=== PATIENT | female | born 1980 | race Caucasian/White ===

== ENCOUNTER → 2020-09-10 | Outpatient (CLI) | payer SELFPAY | END | disposition home or self-care (01) | LOC: LABWHC1 14:11 | PROVIDERS: ATTEND Obstetrics & Gynecology Obstetrics | DX: N92.5 Other specified irregular menstruation (principal) | CPT/HCPCS: 36415; 84144; 84702 ==

== ENCOUNTER → 2020-09-26 | Outpatient (CLI) | payer SELFPAY ==
[2020-09-26 23:25] LABS: HGB 11.6 g/dL (12.0-15.0); MCH 28.9 pg (27.0-32.0); MCHC 33.1 g/dL (32.0-37.0); MCV 87.3 fL (80.0-97.0); Mean Platelet Volume 10.7 fL (9.5-12.2); Platelet Count 271 X 10*3/uL (140-440); RBC 4.01 X 10*6/uL (4.10-5.20); WBC 9.05 X 10*3/uL (4.50-10.00)
[2020-09-27 02:19] LABS: HIV 2 AB Non-Reactive (Non-Reactive); HIV AB P24 Non-Reactive (Non-Reactive); HIV P24 AG Non-Reactive (Non-Reactive)
[2020-09-27 06:35] LABS: Hepatitis B Surface Antigen Non-Reactive (Non-Reactive)
== END | disposition home or self-care (01) ==
LOC: LABWHC1 14:17
PROVIDERS: ATTEND Obstetrics & Gynecology Obstetrics
DX: Z34.82 Encounter for supervision of other normal pregnancy, second trimester (principal); Z3A.00 Weeks of gestation of pregnancy not specified
CPT/HCPCS: 36415; 85027; 86592; 86762; 86850; 86900; 86901; 87086; 87340; 87390

== ENCOUNTER 2021-02-28 14:19 | Outpatient (CLI) | payer OTHER ==
[2021-02-28 15:25] VITALS: BP 122/76; PULSE 100; RESP 16; TEMP 97.8
--- NOTE | 2021-03-15 09:34 | P.MSEPDOC ---
Presenting Problems - Arrival Data Date of Arrival on Unit: 02/28/21 Time of Arrival on Unit: 14:20 Mode of Transport: Ambulatory - Complaint OB-Reason for Admission/Chief Complaint: Decreased Movement Medical History - Information : 3 Para: 1 Term: 1 : 0 Abortions: Spontaneous or Elective: 1 Number of Living Children: 1 - Gestational Age Gestational Age by LINA (wks/days): 38 Weeks and 3 Days Review of Systems - Review of Systems Constitutional: No problems Breast: No problems ENT: No problems Cardiovascular: No problems Respiratory: No problems Gastrointestinal: No problems Genitourinary: No problems Musculoskeletal: No problems Neurological: No problems Skin: No problems Vital Signs - Temperature Temperature: 97.8 F Temperature Source: Oral - Pulse Right Brachial Pulse Rate: 100 Pulse Assessment Method: Auscultation - Respirations Respiratory Rate: 16 Oxygen Delivery Method: Room Air - Blood Pressure Right Arm Blood Pressure: 122/76 Blood Pressure Mean: 91 Blood Pressure Source: Automatic Cuff Medical Screen Scoring - Assessment - Baby A Baseline FHR: 140 Heart Rate - NICHD Category: Category I (Normal) Physician Notification - Physician Notified Physician Notified Date: 02/28/21 Physician Notified Time: 14:51 Physician: Eleanor Del Angel New Order Received: Yes - Notification Comment Comment: reported pt visit with c/o dfm since yesterday, reported fm palpated by rn and now felt by pt. reported reactive nst Maternal Triage Index - Maternal Triage Index Presenting for scheduled procedure w/no complaint: No - Stat/Priority 1 Stat Priority 1: No - Urgent/Priority 2 Urgent Priority 2: Yes Provider Notified: Eleanor Del Angel Provider Notified Time: 14:51 Criteria Met for Priority 2: pt reports decreased fm Disposition - Disposition OB Disposition: Discharge to home Discharge Date: 02/28/21 Discharge Time: 15:09 I agree with the RN Medical Screening Exam: Yes Case reviewed; plan agreed upon as documented in EMR&OBIX.: Yes Diagnosis: FALSE LABOR AT OR AFTER 37 COMPLETED WEEKS OF GESTATION
== END 2021-02-28 15:09 | disposition home or self-care (01) ==
LOC: FBPOP 14:19
PROVIDERS: ATTEND Obstetrics & Gynecology Obstetrics
DX: O47.1 False labor at or after 37 completed weeks of gestation (principal); Z3A.38 38 weeks gestation of pregnancy; Z88.2 Allergy status to sulfonamides
CPT/HCPCS: 59025; G0463; 99213

== ENCOUNTER 2021-03-11 12:36 | Inpatient (IN) | payer OTHER ==
[2021-03-12] MEDS ORDERED: TERBUTALINE 1 MG/ML VIAL SQ PRN (06:25)
[2021-03-12] MEDS ORDERED: OXYTOCIN 10 UNIT/ML 1 ML VIAL IM PRN (06:25)
[2021-03-12] MEDS ORDERED: METHYLERGONOVINE 0.2 MG/ML 1 ML AMP IM PRN (06:25)
[2021-03-12] MEDS ORDERED: LIDOCAINE 0.5% (PF) 5 MG/ML (50 ML SDV) SQ PRN (06:25)
[2021-03-12] MEDS ORDERED: CARBOPROST TROMETHAMINE 250 MCG/ML 1 ML AMP IM PRN (06:25)
[2021-03-12] MEDS ORDERED: LACTATED RINGERS 1,000 ML IV SCH (06:30)
[2021-03-12] MEDS ORDERED: OXYTOCIN 30 UNITS/500 ML NS 30 UNIT in SALINE 1 500ML.BAG IV SCH ×2 (06:30→11:15)
[2021-03-12 07:56] LABS: Basophils % (A) 0 %; Eosinophils # (A) 0.1 k/uL (0-0.7); Eosinophils % (A) 2 %; HCT 37.1 % (34.0-46.0); HGB 12.3 gm/dL (11.4-16.0); Lymphocytes # (A) 1.5 k/uL (1.0-4.8); Lymphocytes % (A) 18 %; MCH 29.1 pg (25.0-35.0); MCHC 33.1 g/dL (31.0-37.0); MCV 87.8 fL (80.0-100.0); Mean Platelet Volume 8.4; Monocytes # (A) 0.5 k/uL (0-1.0); Monocytes % (A) 6 %; Neutrophils # (A) 5.9 k/uL (1.3-7.7); Neutrophils % (A) 72 %; Platelet Count 277 k/uL (150-450); RBC 4.22 m/uL (3.80-5.40); RDW 12.3 % (11.5-15.5); WBC 8.2 k/uL (3.8-10.6)
--- NOTE | 2021-03-12 08:32 | P.HPOB ---
History of Present Illness H&P Date: 03/12/21 Chief Complaint: IUP at 40 and one sevenths weeks, AMA This is a 40-year-old 2 para 1 at 40 1/7 weeks, EDC of 03/11/2021 that presents to labor and delivery for induction of labor secondary to postdates. Patient has had routine care which has been essentially on Occasion. Patient notes good movement, denies vaginal bleeding contractions or loss of fluid. Patient has a normal blood type of A+, rubella status immune, hepatitis B surface antigen negative, HIV negative, group beta strep culture negative. Review of Systems Constitutional: Denies chills, Denies fatigue, Denies fever Ears, nose, mouth and throat: Denies headache Cardiovascular: Denies leg edema Respiratory: Denies dyspnea Gastrointestinal: Denies constipation, Denies diarrhea, Denies nausea, Denies vomiting Genitourinary: Reports Past Medical History Past Medical History: No Reported History History of Any Multi-Drug Resistant Organisms: None Reported Past Surgical History: No Surgical Hx Reported Smoking Status: Never smoker Past Drug Use History: None Reported Medications and Allergies Allergies Allergy/AdvReac Type Severity Reaction Status Date / Time Sulfa (Sulfonamide Allergy Unknown Verified 03/12/21 06:24 Antibiotics) Childhood Exam Osteopathic Statement: *. No significant issues noted on an osteopathic structural exam other than those noted in the History and Physical/Consult. 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 heart tones returned be category 1 and she is rudolph irregularly. Results Result Diagrams: 03/12/21 07:31 Assessment and Plan (1) Post-dates Current Visit: Yes Status: Acute Code(s): O48.0 - POST-TERM SNOMED Code(s): 17839944 (2) AMA (advanced maternal age) multigravida 35+ Current Visit: Yes Status: Acute Code(s): O09.529 - SUPERVISION OF ELDERLY MULTIGRAVIDA, UNSPECIFIED TRIMESTER SNOMED Code(s): 484583393 Plan: 40-year-old at 40 and one sevenths weeks presents for induction of labor. Patient is admitted to labor and delivery and Pitocin induction of labor is begun per hospital protocol. Patient consented amniotomy which was performed and clear fluid was obtained. Patient claims options for analgesia epidural and Stadol are discussed. Anticipate spontaneous vaginal delivery later this morning.
[2021-03-12] MEDS ORDERED: diphenhydrAMINE 25 MG CAP PO PRN (11:10)
[2021-03-12] MEDS ORDERED: ACETAMINOPHEN TAB 325 MG TAB PO PRN (11:10)
[2021-03-12] MEDS ORDERED: diphenhydrAMINE 50 MG CAP PO PRN (11:10)
[2021-03-12] MEDS ORDERED: ZOLPIDEM 5 MG TAB PO PRN (11:10)
[2021-03-12] MEDS ORDERED: BENZOCAINE/MENTHOL SPRAY 1 GM/SPRAY AEROSOL TOPICAL PRN (11:10)
[2021-03-12] MEDS ORDERED: LANOLIN CREAM 5 GM TUBE TOPICAL PRN (11:10)
[2021-03-12] MEDS ORDERED: SIMETHICONE 80 MG CHEWABLE PO PRN (11:10)
[2021-03-12] MEDS ORDERED: HYDROCORTISONE 2.5% RECTAL CREAM 30 GM TUBE RECTAL PRN (11:10)
[2021-03-12] MEDS ORDERED: diphenhydrAMINE 50 MG/ML 1 ML VIAL IVP PRN ×2 (11:10)
[2021-03-12] MEDS: IBUPROFEN 600 MG TAB PO SCH ×2 (11:23→19:41)
[2021-03-12] MEDS: SENNOSIDES-DOCUSATE SODIUM 1 EACH TAB PO SCH (19:40)
--- NOTE | 2021-03-13 05:28 | P.PROBDLV ---
Vaginal Delivery Note - . Vaginal Delivery Note: 40-year-old 2 para 1001 at 40 and one sevenths weeks that presented to labor and delivery for elective induction of labor secondary to postdates. Patient was admitted to labor and delivery and Pitocin induction of labor was begun. Patient did consent to amniotomy and clear fluid was obtained. Patient progressed through labor quickly becoming complete began pushing and had a normal spontaneous vaginal delivery of a viable female infant at 11:00, weight of 7 lbs. 8 oz., Apgars of 8 and 9 at one and 5 minutes respectively. After two-minute delayed the umbilical cord was doubly clamped and cut and the infant was handed to the maternal abdomen. Spontaneous cry was noted at . The placenta was then delivered spontaneously intact with a three-vessel cord being noted. The uterus was noted to be firm and below the umbilicus. On inspection the patient's vaginal vault no lacerations were appreciated. A straight blood loss 100 mL. Patient and tolerated delivery well and are resting complete.
--- NOTE | 2021-03-13 05:30 | P.DS ---
Providers Date of admission: 03/12/21 06:16 Expected date of discharge: 03/13/21 Attending physician: Eleanor Del Angel Primary care physician: Stated None - Discharge Diagnosis(es) (1) Post-dates Current Visit: Yes Status: Acute (2) AMA (advanced maternal age) multigravida 35+ Current Visit: Yes Status: Acute (3) Status post normal vaginal delivery Current Visit: Yes Status: Acute Hospital Course: This is a 40-year-old G2 now P2 status post normal spontaneous vaginal delivery. Patient presented to labor and delivery at 40 1/7 weeks with an estimated due date of 03/11/2021. Patient was admitted to labor and delivery for Pitocin induction of labor secondary to postdates. Patient consented to amniotomy clear fluid was obtained upon examination. Patient progressed quickly through labor eventually becoming complete and had a normal spontaneous vaginal delivery of a viable female at 11:00, weight of 7 lbs. 8 oz., Apgars of 8 and 9 at one and 5 minutes or sexually. No vaginal lacerations were appreciated during the delivery. Patient's course been uneventful. This day #1 she is ambulating and voiding without difficulty. She is tolerating regular diet without nausea or vomiting. She is proceeding without difficulty. She would like discharge home at 24 hours. Patient Condition at Discharge: Good Plan - Discharge Summary Discharge Rx Participant: Yes Follow up Appointment(s)/Referral(s): Eleanor Del Angel DO [Doctor of Osteopathic Medicine] - 4 Weeks Patient Instructions/Handouts: Vaginal Delivery (DC), Vaginal Delivery (GEN) Discharge Disposition: HOME SELF-CARE
[2021-03-13] MEDS: IBUPROFEN 600 MG TAB PO SCH ×3 (06:47→13:22)
[2021-03-13] MEDS: SENNOSIDES-DOCUSATE SODIUM 1 EACH TAB PO SCH (10:48)
[2021-03-13 12:27] VITALS: BP 114/69; PULSE 70; RESP 18; TEMP 98
== END 2021-03-13 15:11 | disposition home or self-care (01) | DRG 807 ==
LOC: 4FBP 03-12 06:16
PROVIDERS: ADMIT Obstetrics & Gynecology Obstetrics; ATTEND Obstetrics & Gynecology Obstetrics
PROC: 10E0XZZ Delivery of Products of Conception, External Approach (ICD-10-PCS; principal; 2021-03-12)
PROC: 10907ZC Drainage of Amniotic Fluid, Therapeutic from Products of Conception, Via Natural or Artificial Opening (ICD-10-PCS; 2021-03-12)
PROC: 3E033VJ Introduction of Other Hormone into Peripheral Vein, Percutaneous Approach (ICD-10-PCS; 2021-03-12)
DX: O48.0 Post-term pregnancy (principal); Z37.0 Single live birth; Z3A.40 40 weeks gestation of pregnancy; Z88.2 Allergy status to sulfonamides
CPT/HCPCS: 85025; 86850; 86900; 86901